=== PATIENT | female | born 1955 | race Caucasian/White ===

== ENCOUNTER → 2016-10-11 | Outpatient (CLI) | payer BC | END | disposition home or self-care (01) | LOC: MW.CHIM 12:13 | PROVIDERS: ATTEND Internal Medicine | DX: R07.89 Other chest pain (principal) | CPT/HCPCS: 93005 ==

== ENCOUNTER → 2016-10-20 | Outpatient (CLI) | payer BC ==
--- NOTE | 2016-10-24 11:44 | ECHO ---
EXAM DATE: 10/20/16 The echocardiogram report can be seen in this patient's EMR (Electronic Medical Record) in the Reports section. ALBA
== END ==
LOC: MW.US 13:56
PROVIDERS: ATTEND Internal Medicine
DX: R94.31 Abnormal electrocardiogram [ECG] [EKG] (principal); R07.89 Other chest pain
CPT/HCPCS: 93306

== ENCOUNTER → 2016-11-14 | Outpatient (CLI) | payer BC ==
--- NOTE | 2016-11-14 07:59 | PCM.PRNOTE ---
- Free Text/Narrative Note: Exercise MIBI Indication CP Sestamibi Tc99 25 MCi was given at the peak HR Patient was brought to the stress test lab in postabsorptive state verbal and paper consent was obtained from patient Vital signs at resting state blood pressure of 112/74 with a heart rate of 64 EKG shows sinus rhythm no ST changes no Q waves Maximal heart rate of 158 and target heart rate is 135 Patient reached the target heart rate, completed stage IV Hernandez protocol Peak blood pressure is 160/94 Total exercise time of 10.[address] changes with a peak heart rate no arrhythmia METS 12.8 No symptom of chest pain or feeling dizzy Impression Normal hemodynamics, normal chronotropic, excellent exercise capacity, negative for ischemia on EKG Plan Nuclear portion pending
--- NOTE | 2016-11-14 11:40 | NM ---
EXAMINATION: Nuclear medicine myocardial perfusion study with exercise stress test. HISTORY: Chest pain. PROCEDURE: Patient exercised according to Hernandez protocol for 10 minutes and 34 seconds and achieved maximal hea rt rate of 158 beats per minute. Adequate exercise. Following intravenous administration of 26.8 mCi of technetium 99m sestamibi, stress SPECT images i ncluding gating imaging was performed. FINDINGS: Stress myocardial SPECT images demonstrates mild to moderately decreased perfusion in the midportion of the anterior wall to the apex. Review of gated images demonstrates normal wall motion, contractility and wall thickening. The left ventricular ejection fraction is 65 %. The left ventricular chamber size is normal. IMPRESSION: 1. Decreased uptake along the anterior wall to the apex, correlate with rest imaging. 2. Normal ventricular chamber size and function with ejection fraction of 65 %.
== END ==
LOC: MW.NM 07:02
PROVIDERS: ATTEND Internal Medicine
DX: R07.9 Chest pain, unspecified (principal)
CPT/HCPCS: 78451; 93017; A9500

== ENCOUNTER → 2016-11-17 | Outpatient (CLI) | payer BC ==
--- NOTE | 2016-11-30 11:55 | NM ---
EXAMINATION: Resting myocardial perfusion study HISTORY: Chest pain COMPARISON: None TECHNIQUE: Additional imaging was obtained at rest following the administration of 25.3 mCi of techn etium 99 M labeled sestamibi. FINDINGS/IMPRESSION: Overall the perfusion pattern breasts is similar to the stress imaging. There i s fixed mildly decreased perfusion along the apical anterior wall and apex. No definite evidence of myocardial ischemia is noted. Ejection fraction at rest is 64%. The TID is 1.1. Wall motion also janki ears similar.
== END ==
LOC: MW.NM 09:43
PROVIDERS: ATTEND Internal Medicine
DX: R07.9 Chest pain, unspecified (principal)
CPT/HCPCS: 78451; A9500

== ENCOUNTER → 2016-11-18 | Outpatient (CLI) | payer BC | END | disposition home or self-care (01) | LOC: MW.LAB 13:10 | PROVIDERS: ATTEND Internal Medicine Endocrinology, Diabetes & Metabolism | DX: E11.65 Type 2 diabetes mellitus with hyperglycemia (principal) | CPT/HCPCS: 36415; 83036 ==

== ENCOUNTER 2017-04-12 11:43 | Emergency (ER) | payer BC ==
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
[2017-04-12 13:23] LABS: CHLORIDE,CL 105 mmol/L (98-110); SODIUM,NA 141 mmol/L (136-146)
[2017-04-12 13:35] VITALS: BP 143/88
== END 2017-04-12 13:44 ==
LOC: MW.ED 11:43
DX: F32.9 Major depressive disorder, single episode, unspecified (principal); R45.851 Suicidal ideations; Z79.84 Long term (current) use of oral hypoglycemic drugs; E11.9 Type 2 diabetes mellitus without complications
CPT/HCPCS: 36415; 80053; 80305; 81001; 84443; 85025; 93005; 99283; G0480; 99284

== ENCOUNTER 2021-04-25 19:35 | Emergency (ER) | payer MEDICARE, BC ==
[2021-04-25 19:52] VITALS: BP 136/76; PULSE 68
[2021-04-25] MEDS ORDERED: Lidocaine 1% with EPINEPHrine 1:100,000 20 ML MDV INJECT ONE (20:56)
[2021-04-25] MEDS ORDERED: Lidocaine 1% with EPINEPHrine 1:100,000 20 ML MDV ONE (20:57)
--- NOTE | 2021-04-25 20:59 | EDM.PDOC ---
ED HPI GENERAL MEDICAL PROBLEM - General Chief Complaint: Head Injury Stated Complaint: HIT BACK OF HEAD, LACERATION Time Seen by Provider: 04/25/21 20:49 - History of Present Illness INITIAL COMMENTS - FREE TEXT/NARRATIVE: History of present illness: [] Patient had a bad outcome from trying to move her rocking chair while she was sitting in it. It turned over and she landed on her head against an object cutting her occiput. Patient has a 7 cm laceration on her occiput full- thickness. It is hemostatic and already been cleaned by the time I was invited to see it. She has no other injury had no loss of consciousness and does not have any indication of any significant injury other than the scalp laceration. She is not on a blood thinner. Review of systems: As per history of present illness and below otherwise all systems reviewed and negative. Past medical history: As per history of present illness and as reviewed below otherwise noncontributory. Surgical history: As per history of present illness and as reviewed below otherwise noncontributory. Social history: No reported history of drug or alcohol abuse. Family history: As per history of present illness and as reviewed below otherwise noncontributo ry. Physical exam: Constitutional - well developed, well-nourished and in no acute distress HEENT -7 cm laceration vertically on the occiput. No scoliosis depression no crepitation. Normocephalic, no evidence of trauma - external nose and mouth normal - no mass in neck and no JVD - mucosae moist EYES - full EOM, PERRL, no icterus - no evidence of inflammation, injection, or drainage Respiratory - no respiratory distress, equal bilateral expansion Musculoskeletal no gross deformity of long bones or joints - no tenderness, swelling or edema Neurologic - Alert and oriented times four - CN II-XII grossly intact - motor sensory and coordination symmetrically normal Psychiatric - appropriate mood and affect with normal thought content Hematologic - No petechiae or purpura - mucosa appropriate color and sclera not pale - normal nail bed color and refill Integument - no rash or evidence of trauma - normal turgor Diagnostics: [] Therapeutics: [] Impression: [] Plan: [] Definitive disposition and diagnosis as appropriate pending reevaluation and review of above. Head Pain Score (Numeric/FACES): 2 - Related Data Allergies Allergy/AdvReac Type Severity Reaction Status Date / Time No Known Allergies Allergy Verified 04/25/21 19:51 Home Meds: Home Meds Anastrozole 1 tab PO BRK 10/30/14 [History] Calcium Carbonate/Vitamin D3 [Calcium 500 + Vit D 400] 2 tab PO DAILY 10/30/14 [History] Lisinopril 1 tab PO DAILY 10/30/14 [History] metFORMIN HCl [Metformin HCl] 1 tab PO BIDMEALS 04/06/15 [History] Acetaminophen/HYDROcodone [[place] 325-10 MG] 1 - 2 tab PO Q4H PRN #80 tablet 04/08/15 [Rx] DULoxetine [Cymbalta] 30 mg PO DAILY 04/12/17 [History] Past Medical History Cardiovascular History: Reports: Hypertension Other Musculoskeletal History: hx: Reduction Right Wrist, Right Impinged painful shoulder Other Neuro History: No migraines since post menopausal Other Psychiatric History: hx: Alcohol dependence, in recovery since Endocrine/Metabolic History: Reports: Diabetes, Type II - Past Surgical History Other Musculoskeletal Surgeries/Procedures:: RIGHT ROTATOR CUFF SURGERY Other Oncologic Surgeries/Procedures: Right lumpectomy, Bilateral Mastectomy, bilateral Breast REconstruction with implants Social & Family History - Family History Family Medical History: No Pertinent Family History - Tobacco Use Second Hand Smoke Exposure: Yes - Caffeine Use Caffeine Use: Reports: None - Recreational Drug Use Recreational Drug Use: No ED ROS GENERAL - Review of Systems Review Of Systems: Comprehensive ROS is negative, except as noted in HPI. ED EXAM, HEAD INJURY - Physical Exam Exam: See Below Text/Narrative:: My physical exam as in the HPI ED LACERATION/WOUND & DAVID PROC - Laceration/Wound Repair Head Appearance: Subcutaneous Distal NVT: Neuro & Vascular Intact Anesthetic Type: Local Local Anesthesia - Lidocaine (Xylocaine): 1% with EPI Local Anesthetic Volume: Other (8 ml) Skin Prep: Saline Saline irrigation (cc's): 500 Closed with: [place] # of Sutures: 8 Suture Type: Simple Course - Vital Signs Last Recorded V/S: Last Vital Signs Temp 36.4 C 04/25/21 19:46 Pulse 68 04/25/21 19:46 Resp 20 04/25/21 19:46 BP 136/76 04/25/21 19:46 Pulse Ox 95 04/25/21 19:46 - Orders/Labs/Meds Orders: Active Orders 24 hr Category Date Time Status Vaccine to be Administered/Admin Charge [RC] ASDIRECTED Care 04/25/21 21:17 Ordered Diphth,Pertuss(Acell),Tet Vac [Boostrix] Med 04/25/21 21:17 Once 0.5 ml IM .ONCE ONE Meds: Medications Discontinued Medications Generic Name Dose Route Start Last Admin Trade Name Vangie PRN Reason Stop Dose Admin Lidocaine/Epinephrine 20 ml 04/25/21 20:56 04/25/21 21:00 Lidocaine 1% With Epinephrine 1:100,000 20 Ml Mdv INJECT 04/25/21 20:57 20 ml ONETIME ONE Administration Lidocaine/Epinephrine Confirm 04/25/21 20:57 04/25/21 21:01 Lidocaine 1% With Epinephrine 1:100,000 20 Ml Mdv Administered 04/25/21 20:58 Not Given Dose 20 ml .ROUTE .STK-MED ONE - Re-Assessments/Exams Free Text/Narrative Re-Assessment/Exam: 04/25/21 20:58 Patient thought she might need to have darren without anesthesia to expedite her care. After one staple she decided she wanted anesthesia. Free Text/Narrative Re-Assessment/Exam: 04/25/21 21:17 Patient decided she does not know when her last tetanus is and she wants to Boostrix Departure - Departure Time of Disposition: 21:19 Disposition: Home, Self-Care 01 Condition: Good Clinical Impression: Scalp laceration - Discharge Information Instructions: Laceration Care, Adult Referrals: Sergio Mtz MD [Primary Care Provider] - Forms: ED Department Discharge Additional Instructions: [place] out in 7 to 10 days [facility] - Primary Care [address] [place] [id number] [id number] The following information is given to patients seen in the emergency department who are being discharged to home. This information is to outline your options for follow-up care. We provide all patients seen in our emergency department with a follow-up referral. The need for follow-up, as well as the timing and circumstances, are variable depending upon the specifics of your emergency department visit. If you don't have a primary care physician on staff, we will provide you with a referral. We always advise you to contact your personal physician following an emergency department visit to inform them of the circumstance of the visit and for follow-up with them and/or the need for any referrals to a consulting specialist. The emergency department will also refer you to a specialist when appropriate. This referral assures that you have the opportunity for follow-up care with a specialist. All of these measure are taken in an effort to provide you with optimal care, which includes your follow-up. Under all circumstances we always encourage you to contact your private physician who remains a resource for coordinating your care. When calling for follow-up care, please make the office aware that this follow-up is from your recent emergency room visit. If for any reason you are refused follow-up, please contact the [facility] Emergency Department at and asked to speak to the emergency department charge nurse. Sepsis Event Note (ED) - Evaluation Sepsis Screening Result: No Definite Risk - Focused Exam Vital Signs: Vital Signs Temp Pulse Resp BP Pulse Ox 04/25/21 19:46 36.4 C 68 20 136/76 95 - My Orders Last 24 Hours: My Active Orders 04/25/21 21:17 Vaccine to be Administered/Admin Charge [RC] ASDIRECTED Diphth,Pertuss(Acell),Tet Vac [Boostrix] 0.5 ml IM .ONCE ONE - Assessment/Plan Last 24 Hours: My Active Orders 04/25/21 21:17 Vaccine to be Administered/Admin Charge [RC] ASDIRECTED Diphth,Pertuss(Acell),Tet Vac [Boostrix] 0.5 ml IM .ONCE ONE
[2021-04-25] MEDS ORDERED: Diphtheria,Pertussis(Acell),Tetanus Vaccine 0.5 ML Syringe IM ONE (21:17)
== END 2021-04-25 21:27 | disposition home or self-care (01) ==
LOC: MW.ED 19:35
DX: S01.01XA Laceration without foreign body of scalp, initial encounter (principal); Z23 Encounter for immunization; W26.8XXA Contact with other sharp object(s), not elsewhere classified, initial encounter
CPT/HCPCS: 12002; 90471; 90715; 99282-25